=== PATIENT | male | born 1990 | race Caucasian/White ===

== ENCOUNTER 2023-01-23 16:29 | Emergency (ER) | payer SELFPAY ==
[~2023-01-23] VITALS: Ht 175.3 cm; Wt 86.2 kg
[2023-01-23 16:38] VITALS: BP_SYST 139; PULSE 112; RESP 18; TEMP 98.3; O2SAT 98
[2023-01-23 19:06] LABS: BILIRUBIN,URINE NEGATIVE (NEGATIVE); BLOOD, URINE NEGATIVE (NEGATIVE); CLARITY/URINE CLEAR (CLEAR); COLOR,URINE YELLOW (YELLOW); GLUCOSE,URINE NEGATIVE (NEGATIVE); KETONES,URINE NEGATIVE (NEGATIVE); LEUKOCYTE ESTERASE ,URINE NEGATIVE (NEGATIVE); NITRITE, URINE NEGATIVE (NEGATIVE); PH,URINE 6.5 (5.0-8.0); PROTEIN URINE NEGATIVE (NEGATIVE); UROBILINOGEN,URINE 0.2 (0.2-1.0)
[2023-01-23] MEDS ORDERED: KETOROLAC TROMETHAMINE 60 MG/2 ML VIAL IM ONE (20:00)
[2023-01-23] MEDS ORDERED: DICL75TA5 PO (21:03)
== END 2023-01-23 21:35 | disposition home or self-care (01) ==
LOC: SED 16:29
DX: N43.3 Hydrocele, unspecified (principal); N50.812 Left testicular pain; Z79.899 Other long term (current) drug therapy
CPT/HCPCS: 99285; 76870; 96372; 81003; J1885